=== PATIENT | female | born 1945 | race Caucasian/White ===

== ENCOUNTER 2019-06-07 07:42 | Inpatient (IN) ==
[2019-06-07] MEDS ORDERED: Ipratropium/Albuterol Neb 3 ML IH ONE (07:46)
[2019-06-07] MEDS ORDERED: methylPREDNISolone 125 MG/2 ML VIAL IVP ONE (07:47)
[2019-06-07 08:58] LABS: Basophils # 0.1 K/mcL (0.0-0.2); Basophils % 0.6 %; Eosinophils # 0.3 K/mcL (0.0-0.6); Hematocrit 40.5 % (35.3-44.9); Hemoglobin 13.2 g/dL (11.5-15.4); Immature Granulocytes % 0.6 % (0-4); Lymphocytes # 1.7 K/mcL (0.6-4.6); Lymphocytes % 21.1 %; Mean Corpuscular HGB Conc 32.6 g/dL (31.6-35.5); Mean Corpuscular Hemoglobin 29.9 pg (28.0-33.3); Mean Corpuscular Volume 91.8 fL (83.0-100.0); Mean Platelet Volume 11.9 fL (9.4-12.4); Monocytes # 0.5 K/mcL (0.0-1.3); Monocytes % 6.1 %; Neutrophils # 5.6 K/mcL (1.6-8.9); Platelet Count 247 K/mcL (140-400); Red Blood Count 4.41 M/mcL (3.82-4.97); Red Cell Distribution Width 12.8 % (11.5-14.5); Segmented Neutrophils % 68.6 %; White Blood Count 8.2 K/mcL (4.3-11.1)
[2019-06-07] MEDS ORDERED: 0.9 % Sodium Chloride 1,000 ML IVC ONE ×3 (09:10→17:15)
[2019-06-07 09:20] LABS: Alanine Aminotransferase 30 Units/L (7-52); Albumin 4.5 g/dL (3.5-5.7); Albumin/Globulin Ratio 1.4 (1.1-2.2); Alkaline Phosphatase 104 Units/L (34-104); Aspartate Amino Transferase 38 Units/L (13-39); BUN/Creatinine Ratio 30 (6-26); Bilirubin,Indirect 0.4 mg/dL (0.0-1.0); Bilirubin,Total 0.4 mg/dL (0.3-1.0); Blood Urea Nitrogen 30 mg/dL (8-23); C-Reactive Protein < 5 mg/L (Less than 10); Calcium 9.4 mg/dL (8.6-10.3); Carbon Dioxide 25 mEq/L (23-29); Chloride 97 mEq/L (98-107); Globulin 3.2 g/dL (2.4-3.5); Glucose 388 mg/dL (70-105); Lactate Dehydrogenase 190 Units/L (140-271); Magnesium 2.1 mg/dL (1.6-2.6); Osmolality,Calculated 302 (280-300); Phosphorous 3.7 mg/dL (2.7-4.5); Potassium 4.1 mEq/L (3.5-5.1); Sodium 135 mEq/L (136-145); Total Protein 7.7 g/dL (6.4-8.9); Troponin I < 0.03 ng/mL (< 0.04); eGFR For African Americans > 60 (> 60); eGFR For Non-African Americans 54 (> 60)
[2019-06-07] MEDS ORDERED: cefTRIAXone 2,000 MG in Water for inj. (sterile) 20 ML IVP ONE (09:32)
[2019-06-07] MEDS ORDERED: Azithromycin 500 MG in 0.9 % Sodium Chloride 250 ML IVPB ONE (09:32)
[2019-06-07 09:37] LABS: Ferritin 243 ng/mL (10-120)
[2019-06-07] MEDS ORDERED: Naloxone 0.4 MG/ML INJ IVP PRN (12:52)
[2019-06-07] MEDS ORDERED: D5% in Water 1,000 ML IVC PRN (12:52)
[2019-06-07] MEDS ORDERED: Dextrose Gel 15 GM/37.5 ML TUBE PO PRN ×2 (12:52)
[2019-06-07] MEDS ORDERED: Mag Hydrox/Al Hydrox/Simeth 30 ML UDC PO PRN (12:52)
[2019-06-07] MEDS ORDERED: Acetaminophen 325 MG TABLET PO PRN (12:52)
[2019-06-07] MEDS ORDERED: *HR* Dextrose 50 % in Water (Syg) 50 ML SYRINGE IVP PRN (12:52)
[2019-06-07] MEDS ORDERED: MOM Conc 10 ML UD.LIQ PO PRN (12:52)
[2019-06-07] MEDS ORDERED: Ondansetron ODT 4 MG TAB.RAPDIS SL PRN (12:52)
[2019-06-07] MEDS ORDERED: ALPRAZolam 0.25 MG TABLET PO PRN (12:54)
[2019-06-07] MEDS ORDERED: Insulin LISPRO 300 UNITS/3 ML VIAL SQ SCH ×2 (16:30→21:00)
[2019-06-07] MEDS ORDERED: carvediloL 25 MG TABLET PO SCH (17:00)
[2019-06-07] MEDS ORDERED: Warfarin perPT PO PRN (18:00)
[2019-06-07] MEDS: Furosemide 40 MG TABLET PO SCH (18:06)
[2019-06-07] MEDS: Cholestyramine 4 GM POWD.PACK PO SCH (18:06)
[2019-06-07 19:43] LABS: INR 3.2; Prothrombin Time 36.5 Seconds (9.4-12.1)
[2019-06-07] MEDS: Insulin LISPRO 300 UNITS/3 ML VIAL SQ SCH (20:50)
[2019-06-07] MEDS: carvediloL 25 MG TABLET PO SCH (20:50)
[2019-06-07] MEDS: lisinopriL 20 MG TABLET PO SCH (20:50)
[2019-06-07] MEDS: gemfibroziL 600 MG TABLET PO SCH (20:50)
[2019-06-07] MEDS: 0.9 % Sodium Chloride 1,000 ML IVC SCH (20:53)
[2019-06-07 21:22] LABS: VBG HCO3 25 mEq/L (21-27); VBG PCO2 42 mmHg (41-51); VBG PH 7.38 pH Units (7.32-7.42); VBG PO2 81 mmHg (25-50)
[2019-06-07 21:23] LABS: Estimated Average Glucose 272 mg/dl
[2019-06-07 22:17] LABS: Bilirubin,Urine Negative (Negative); Blood,Urine Negative (Negative); Clarity,Urine Clear (Clear); Color,Urine Yellow (Yellow); Glucose,Urine (UA) >=1000 mg/dL (Normal); Ketones,Urine Negative (Negative); Leukocyte Esterase,Urine Negative (Negative); Nitrite,Urine Negative (Negative); Protein,Urine Negative (Neg-Trace); Specific Gravity,Urine 1.027 (1.010-1.025); Urobilinogen,Urine Normal (Normal)
[2019-06-08] MEDS: Insulin LISPRO 300 UNITS/3 ML VIAL SQ SCH ×6 (00:06→20:08)
[2019-06-08] MEDS: 0.9 % Sodium Chloride 1,000 ML IVC SCH (03:34)
[2019-06-08 04:04] LABS: Hematocrit 37.1 % (35.3-44.9); Hemoglobin 11.8 g/dL (11.5-15.4); Mean Corpuscular HGB Conc 31.8 g/dL (31.6-35.5); Mean Corpuscular Hemoglobin 29.5 pg (28.0-33.3); Mean Corpuscular Volume 92.8 fL (83.0-100.0); Mean Platelet Volume 11.8 fL (9.4-12.4); Platelet Count 246 K/mcL (140-400); Red Cell Distribution Width 12.8 % (11.5-14.5)
[2019-06-08 04:06] LABS: White Blood Count 12.8 K/mcL (4.3-11.1)
[2019-06-08 04:17] LABS: INR 3.8; Prothrombin Time 42.9 Seconds (9.4-12.1)
[2019-06-08 04:22] LABS: Enterococcus by PCR Not Detected (Not Detect); Staphylococcus by PCR DETECTED (Not Detect); mecA Methicillin-Resist Gene DETECTED (Not Detect)
[2019-06-08 04:23] LABS: Acinetobacter baumannii by PCR Not Detected (Not Detect); Candida albicans by PCR Not Detected (Not Detect); Candida glabrata by PCR Not Detected (Not Detect); Candida krusei by PCR Not Detected (Not Detect); Candida parapsilosis by PCR Not Detected (Not Detect); Candida tropicalis by PCR Not Detected (Not Detect); Enterobacter cloacae Cmplx PCR Not Detected (Not Detect); Enterobacteriaceae by PCR Not Detected (Not Detect); Escherichia coli by PCR Not Detected (Not Detect); Klebsiella oxytoca by PCR Not Detected (Not Detect); Klebsiella pneumoniae by PCR Not Detected (Not Detect); Proteus by PCR Not Detected (Not Detect); Pseudomonas aeruginosa by PCR Not Detected (Not Detect); Serratia marcescens by PCR Not Detected (Not Detect); Staphylococcus aureus by PCR Not Detected (Not Detect); Streptococcus agalactiae(B)PCR Not Detected (Not Detect); Streptococcus by PCR Not Detected (Not Detect); Streptococcus pneumoniae PCR Not Detected (Not Detect); Streptococcus pyogenes (A) PCR Not Detected (Not Detect)
[2019-06-08 04:23] LABS: Calcium 8.4 mg/dL (8.6-10.3); Magnesium 2.1 mg/dL (1.6-2.6); Potassium 4.1 mEq/L (3.5-5.1)
[2019-06-08] MEDS: carvediloL 25 MG TABLET PO SCH ×2 (07:53→20:00)
[2019-06-08] MEDS: lisinopriL 20 MG TABLET PO SCH (07:53)
[2019-06-08] MEDS: Cholestyramine 4 GM POWD.PACK PO SCH ×3 (07:53→17:07)
[2019-06-08] MEDS: gemfibroziL 600 MG TABLET PO SCH ×2 (07:53→20:00)
[2019-06-08] MEDS: Furosemide 40 MG TABLET PO SCH ×2 (07:53→16:00)
[2019-06-08] MEDS: Aspirin 81 MG TAB.CHEW PO SCH (07:53)
[2019-06-08] MEDS: cefTRIAXone 1,000 MG in Water for inj. (sterile) 10 ML IVP SCH (07:53)
[2019-06-08] MEDS: Azithromycin 500 MG in 0.9 % Sodium Chloride 250 ML IVPB SCH (07:54)
[2019-06-08] MEDS ORDERED: Vancomycin 1,750 MG in 0.9 % Sodium Chloride 250 ML IVPB SCH (09:00)
[2019-06-08] MEDS ORDERED: Insulin DETEMIR 100 UNIT/ML X5UNITS SQ ONE (16:00)
[2019-06-09] MEDS: Insulin LISPRO 300 UNITS/3 ML VIAL SQ SCH ×4 (00:12→12:17)
[2019-06-09 04:10] LABS: Hematocrit 36.3 % (35.3-44.9); Hemoglobin 11.2 g/dL (11.5-15.4); Mean Corpuscular HGB Conc 30.9 g/dL (31.6-35.5); Mean Corpuscular Hemoglobin 29.8 pg (28.0-33.3); Mean Corpuscular Volume 96.5 fL (83.0-100.0); Mean Platelet Volume 11.6 fL (9.4-12.4); Platelet Count 208 K/mcL (140-400); Red Blood Count 3.76 M/mcL (3.82-4.97); Red Cell Distribution Width 13.2 % (11.5-14.5); White Blood Count 8.2 K/mcL (4.3-11.1)
[2019-06-09 04:22] LABS: BUN/Creatinine Ratio 27 (6-26); Blood Urea Nitrogen 21 mg/dL (8-23); Calcium 8.2 mg/dL (8.6-10.3); Carbon Dioxide 21 mEq/L (23-29); Chloride 113 mEq/L (98-107); Glucose 138 mg/dL (70-105); Osmolality,Calculated 297 (280-300); Potassium 4.2 mEq/L (3.5-5.1); Sodium 141 mEq/L (136-145); eGFR For African Americans > 60 (> 60); eGFR For Non-African Americans > 60 (> 60)
[2019-06-09 04:26] LABS: INR 4.9; Prothrombin Time 56.1 Seconds (9.4-12.1)
[2019-06-09] MEDS: Azithromycin 500 MG in 0.9 % Sodium Chloride 250 ML IVPB SCH (08:20)
[2019-06-09] MEDS: cefTRIAXone 1,000 MG in Water for inj. (sterile) 10 ML IVP SCH (08:20)
[2019-06-09] MEDS: carvediloL 25 MG TABLET PO SCH (08:21)
[2019-06-09] MEDS: gemfibroziL 600 MG TABLET PO SCH (08:21)
[2019-06-09] MEDS: Furosemide 40 MG TABLET PO SCH (08:22)
[2019-06-09] MEDS: Aspirin 81 MG TAB.CHEW PO SCH (08:22)
[2019-06-09] MEDS: Cholestyramine 4 GM POWD.PACK PO SCH ×2 (08:34→12:17)
[2019-06-09] MEDS ORDERED: Insulin DETEMIR 100 UNIT/ML X5UNITS SQ SCH (09:00)
[2019-06-09 11:19] VITALS: BP 121/67
== END 2019-06-09 12:21 | disposition home or self-care (01) | DRG 190 ==
LOC: EMEROOARM 07:42 → 2NENU 07:42 → SUATTDRO 11:12 → 2NENU 12:40 → 2ANU 06-08 21:38
PROVIDERS: ADMIT Internal Medicine; ATTEND Internal Medicine

== ENCOUNTER 2019-10-06 06:58 | Inpatient (IN) ==
[2019-10-06 07:44] LABS: Basophils # 0.1 K/mcL (0.0-0.2); Basophils % 0.9 %; Eosinophils # 0.2 K/mcL (0.0-0.6); Eosinophils % 2.7 %; Hematocrit 41.7 % (35.3-44.9); Hemoglobin 13.1 g/dL (11.5-15.4); Immature Granulocytes % 0.9 % (0-4); Lymphocytes # 2.1 K/mcL (0.6-4.6); Lymphocytes % 29.7 %; Mean Corpuscular HGB Conc 31.4 g/dL (31.6-35.5); Mean Corpuscular Hemoglobin 29.7 pg (28.0-33.3); Mean Corpuscular Volume 94.6 fL (83.0-100.0); Mean Platelet Volume 11.4 fL (9.4-12.4); Monocytes # 0.5 K/mcL (0.0-1.3); Monocytes % 7.5 %; Neutrophils # 4.1 K/mcL (1.6-8.9); Platelet Count 285 K/mcL (140-400); Red Blood Count 4.41 M/mcL (3.82-4.97); Red Cell Distribution Width 13.2 % (11.5-14.5); Segmented Neutrophils % 58.3 %
[2019-10-06 07:50] LABS: INR 3.5; Prothrombin Time 39.8 Seconds (9.4-12.1)
[2019-10-06 08:03] LABS: Alanine Aminotransferase 22 Units/L (7-52); Albumin 4.5 g/dL (3.5-5.7); Albumin/Globulin Ratio 1.5 (1.1-2.2); Alkaline Phosphatase 100 Units/L (34-104); Aspartate Amino Transferase 28 Units/L (13-39); BUN/Creatinine Ratio 29 (6-26); Bilirubin,Total 0.5 mg/dL (0.3-1.0); Blood Urea Nitrogen 27 mg/dL (8-23); Carbon Dioxide 29 mEq/L (23-29); Chloride 100 mEq/L (98-107); Globulin 3.1 g/dL (2.4-3.5); Glucose 300 mg/dL (70-105); Osmolality,Calculated 306 (280-300); Potassium 3.9 mEq/L (3.5-5.1); Sodium 140 mEq/L (136-145); Total Protein 7.6 g/dL (6.4-8.9); Troponin I < 0.03 ng/mL (< 0.04); eGFR For African Americans > 60 (> 60); eGFR For Non-African Americans 58 (> 60)
[2019-10-06 08:07] LABS: Bacteria,Urine Many per hpf (None-Few); Bilirubin,Urine Negative (Negative); Blood,Urine Small (Negative); Clarity,Urine Ex.Turbid (Clear); Color,Urine Yellow (Yellow); Glucose,Urine (UA) >=1000 mg/dL (Normal); Ketones,Urine Negative (Negative); Leukocyte Esterase,Urine Large (Negative); Nitrite,Urine Negative (Negative); Protein,Urine 30 mg/dL (Neg-Trace); Specific Gravity,Urine 1.016 (1.010-1.025); Urobilinogen,Urine Normal (Normal); WBC,Urine TNTC per hpf (0-3)
[2019-10-06] MEDS ORDERED: cefTRIAXone 1,000 MG in Water for inj. (sterile) 10 ML IVP STA (09:17)
[2019-10-06] MEDS ORDERED: Naloxone 0.4 MG/ML INJ IVP PRN (09:38)
[2019-10-06] MEDS ORDERED: Ondansetron 4 MG/2 ML VIAL IVP PRN (09:38)
[2019-10-06] MEDS ORDERED: D5% in Water 1,000 ML IVC PRN (09:38)
[2019-10-06] MEDS ORDERED: *HR* Dextrose 50 % in Water (Vial) 50 ML VIAL IVP PRN (09:38)
[2019-10-06] MEDS ORDERED: Dextrose Gel 15 GM/37.5 ML TUBE PO PRN ×2 (09:38)
[2019-10-06] MEDS ORDERED: Perflutren Lipid Microsphere 1.3 ML in 0.9 % Sodium Chloride 8.7 ML IVP PRN (09:41)
[2019-10-06] MEDS: Aspirin 81 MG TAB.CHEW PO SCH (12:10)
[2019-10-06] MEDS: Insulin LISPRO 300 UNITS/3 ML VIAL SQ SCH ×2 (12:10→17:25)
[2019-10-06] MEDS: lisinopriL 20 MG TABLET PO SCH ×2 (12:10→21:58)
[2019-10-06] MEDS: carvediloL 25 MG TABLET PO SCH ×2 (12:10→17:37)
[2019-10-06] MEDS ORDERED: *HR* LORazepam 2 MG/ML VIAL IVP ONE (16:10)
[2019-10-06] MEDS ORDERED: Warfarin perPT PO PRN (18:00)
[2019-10-06] MEDS: Budesonide/Formoterol 80/4.5 1 PUFF INH IH SCH (20:28)
[2019-10-06] MEDS: gemfibroziL 600 MG TABLET PO SCH (21:58)
[2019-10-07 01:34] LABS: INR 2.7; Prothrombin Time 30.5 Seconds (9.4-12.1)
[2019-10-07 01:51] LABS: BUN/Creatinine Ratio 27 (6-26); Blood Urea Nitrogen 26 mg/dL (8-23); Calcium 9.5 mg/dL (8.6-10.3); Carbon Dioxide 26 mEq/L (23-29); Chloride 103 mEq/L (98-107); Chol/HDL Ratio 4.2 (0-4.9); Cholesterol 191 mg/dL (< 200); Glucose 181 mg/dL (70-105); HDL Cholesterol 45 mg/dL (40-59); LDL Cholesterol,Calculated 118 mg/dL (< 100); Osmolality,Calculated 295 (280-300); Potassium 3.9 mEq/L (3.5-5.1); Sodium 138 mEq/L (136-145); Triglycerides 139 mg/dL (< 150); eGFR For African Americans > 60 (> 60); eGFR For Non-African Americans 57 (> 60)
[2019-10-07] MEDS: Budesonide/Formoterol 80/4.5 1 PUFF INH IH SCH ×2 (07:58→19:53)
[2019-10-07 08:12] LABS: Estimated Average Glucose 203 mg/dl
[2019-10-07] MEDS: lisinopriL 20 MG TABLET PO SCH ×2 (08:20→21:07)
[2019-10-07] MEDS: Cyanocobalamin (B-12) 1,000 MCG TABLET PO SCH (08:20)
[2019-10-07] MEDS: Cholecalciferol (D-3) 1,000 UNIT (25MCG) TABLET PO SCH (08:20)
[2019-10-07] MEDS: gemfibroziL 600 MG TABLET PO SCH ×2 (08:20→21:07)
[2019-10-07] MEDS: ALPRAZolam 0.25 MG TABLET PO SCH (08:20)
[2019-10-07] MEDS: Aspirin 81 MG TAB.CHEW PO SCH (08:21)
[2019-10-07] MEDS: carvediloL 25 MG TABLET PO SCH ×2 (08:21→17:50)
[2019-10-07] MEDS: cefTRIAXone 1,000 MG in Water for inj. (sterile) 10 ML IVP SCH (08:21)
[2019-10-07] MEDS: Insulin LISPRO 300 UNITS/3 ML VIAL SQ SCH ×3 (08:23→17:50)
[2019-10-07] MEDS ORDERED: *HR* Warfarin 5 MG TABLET PO ONE (18:00)
[2019-10-08 06:54] LABS: Hematocrit 38.4 % (35.3-44.9); Hemoglobin 12.1 g/dL (11.5-15.4); Mean Corpuscular HGB Conc 31.5 g/dL (31.6-35.5); Mean Corpuscular Hemoglobin 30.2 pg (28.0-33.3); Mean Corpuscular Volume 95.8 fL (83.0-100.0); Mean Platelet Volume 11.6 fL (9.4-12.4); Platelet Count 254 K/mcL (140-400); Red Blood Count 4.01 M/mcL (3.82-4.97); Red Cell Distribution Width 13.5 % (11.5-14.5)
[2019-10-08 06:58] LABS: INR 2.1; Prothrombin Time 23.9 Seconds (9.4-12.1)
[2019-10-08 07:19] LABS: BUN/Creatinine Ratio 24 (6-26); Blood Urea Nitrogen 21 mg/dL (8-23); Calcium 9.3 mg/dL (8.6-10.3); Carbon Dioxide 27 mEq/L (23-29); Chloride 103 mEq/L (98-107); Glucose 191 mg/dL (70-105); Osmolality,Calculated 294 (280-300); Potassium 4.2 mEq/L (3.5-5.1); Sodium 138 mEq/L (136-145); eGFR For African Americans > 60 (> 60); eGFR For Non-African Americans > 60 (> 60)
[2019-10-08] MEDS: Budesonide/Formoterol 80/4.5 1 PUFF INH IH SCH ×2 (08:17→20:25)
[2019-10-08] MEDS: Cyanocobalamin (B-12) 1,000 MCG TABLET PO SCH (08:36)
[2019-10-08] MEDS: carvediloL 25 MG TABLET PO SCH ×2 (08:36→17:36)
[2019-10-08] MEDS: ALPRAZolam 0.25 MG TABLET PO SCH (08:36)
[2019-10-08] MEDS: Aspirin 81 MG TAB.CHEW PO SCH (08:36)
[2019-10-08] MEDS: lisinopriL 20 MG TABLET PO SCH ×2 (08:36→22:09)
[2019-10-08] MEDS: gemfibroziL 600 MG TABLET PO SCH ×2 (08:36→22:09)
[2019-10-08] MEDS: Cholecalciferol (D-3) 1,000 UNIT (25MCG) TABLET PO SCH (08:36)
[2019-10-08] MEDS: cefTRIAXone 1,000 MG in Water for inj. (sterile) 10 ML IVP SCH (08:37)
[2019-10-08] MEDS: Insulin LISPRO 300 UNITS/3 ML VIAL SQ SCH ×3 (08:38→17:36)
[2019-10-08] MEDS ORDERED: *HR* Heparin 5,000 UNIT/ML VIAL IVP ONE (09:00)
[2019-10-08] MEDS ORDERED: *HR* Heparin 5,000 UNIT/ML VIAL IVP PRN ×2 (09:00)
[2019-10-08] MEDS: Heparin 25,000UNIT/250ML 1/2NS 25,000 UNIT/250 ML IV.SOLN IVC SCH (10:40)
[2019-10-09 01:01] LABS: Hematocrit 37.8 % (35.3-44.9); Hemoglobin 11.7 g/dL (11.5-15.4); Mean Corpuscular Hemoglobin 29.8 pg (28.0-33.3); Mean Corpuscular Volume 96.2 fL (83.0-100.0); Mean Platelet Volume 11.3 fL (9.4-12.4); Platelet Count 258 K/mcL (140-400); Red Blood Count 3.93 M/mcL (3.82-4.97); Red Cell Distribution Width 13.4 % (11.5-14.5); White Blood Count 8.2 K/mcL (4.3-11.1)
[2019-10-09 01:05] LABS: INR 1.6; Prothrombin Time 18.3 Seconds (9.4-12.1)
[2019-10-09 01:19] LABS: BUN/Creatinine Ratio 27 (6-26); Blood Urea Nitrogen 25 mg/dL (8-23); Calcium 8.8 mg/dL (8.6-10.3); Carbon Dioxide 26 mEq/L (23-29); Chloride 103 mEq/L (98-107); Glucose 217 mg/dL (70-105); Osmolality,Calculated 295 (280-300); Potassium 4.1 mEq/L (3.5-5.1); Sodium 137 mEq/L (136-145); eGFR For African Americans > 60 (> 60); eGFR For Non-African Americans 59 (> 60)
[2019-10-09] MEDS: Heparin 25,000UNIT/250ML 1/2NS 25,000 UNIT/250 ML IV.SOLN IVC SCH ×3 (07:20→15:29)
[2019-10-09] MEDS: Budesonide/Formoterol 80/4.5 1 PUFF INH IH SCH ×2 (07:51→19:42)
[2019-10-09] MEDS: Aspirin 81 MG TAB.CHEW PO SCH (08:37)
[2019-10-09] MEDS: Cholecalciferol (D-3) 1,000 UNIT (25MCG) TABLET PO SCH (08:37)
[2019-10-09] MEDS: ALPRAZolam 0.25 MG TABLET PO SCH (08:37)
[2019-10-09] MEDS: gemfibroziL 600 MG TABLET PO SCH ×2 (08:37→20:53)
[2019-10-09] MEDS: lisinopriL 20 MG TABLET PO SCH ×2 (08:37→20:53)
[2019-10-09] MEDS: carvediloL 25 MG TABLET PO SCH ×2 (08:37→15:53)
[2019-10-09] MEDS: Insulin LISPRO 300 UNITS/3 ML VIAL SQ SCH ×3 (08:37→15:53)
[2019-10-09] MEDS: cefTRIAXone 1,000 MG in Water for inj. (sterile) 10 ML IVP SCH (08:38)
[2019-10-09] MEDS: Cyanocobalamin (B-12) 1,000 MCG TABLET PO SCH (08:38)
[2019-10-09] MEDS: Ipratropium/Albuterol Neb 3 ML IH SCH (14:00)
[2019-10-09] MEDS: Insulin DETEMIR 100 UNIT/ML X5UNITS SQ SCH (18:16)
[2019-10-10 06:19] LABS: Hemoglobin 11.9 g/dL (11.5-15.4); Mean Corpuscular HGB Conc 31.3 g/dL (31.6-35.5); Mean Corpuscular Hemoglobin 30.2 pg (28.0-33.3); Mean Corpuscular Volume 96.4 fL (83.0-100.0); Mean Platelet Volume 11.1 fL (9.4-12.4); Platelet Count 250 K/mcL (140-400); Red Blood Count 3.94 M/mcL (3.82-4.97); Red Cell Distribution Width 13.4 % (11.5-14.5); White Blood Count 7.4 K/mcL (4.3-11.1)
[2019-10-10 06:23] LABS: INR 1.3; Prothrombin Time 14.3 Seconds (9.4-12.1)
[2019-10-10 06:42] LABS: BUN/Creatinine Ratio 27 (6-26); Blood Urea Nitrogen 23 mg/dL (8-23); Carbon Dioxide 25 mEq/L (23-29); Chloride 105 mEq/L (98-107); Glucose 184 mg/dL (70-105); Osmolality,Calculated 294 (280-300); Potassium 4.2 mEq/L (3.5-5.1); Sodium 138 mEq/L (136-145); eGFR For African Americans > 60 (> 60); eGFR For Non-African Americans > 60 (> 60)
[2019-10-10] MEDS: Budesonide/Formoterol 80/4.5 1 PUFF INH IH SCH ×2 (07:41→20:36)
[2019-10-10] MEDS: Ipratropium/Albuterol Neb 3 ML IH SCH (07:41)
[2019-10-10] MEDS: Insulin LISPRO 300 UNITS/3 ML VIAL SQ SCH ×3 (07:43→16:01)
[2019-10-10] MEDS: ALPRAZolam 0.25 MG TABLET PO SCH (07:45)
[2019-10-10] MEDS: carvediloL 25 MG TABLET PO SCH ×2 (07:45→16:02)
[2019-10-10] MEDS: lisinopriL 20 MG TABLET PO SCH ×2 (07:45→20:43)
[2019-10-10] MEDS: Cyanocobalamin (B-12) 1,000 MCG TABLET PO SCH (07:45)
[2019-10-10] MEDS: gemfibroziL 600 MG TABLET PO SCH ×2 (07:45→20:43)
[2019-10-10] MEDS: cefTRIAXone 1,000 MG in Water for inj. (sterile) 10 ML IVP SCH (07:45)
[2019-10-10] MEDS: Aspirin 81 MG TAB.CHEW PO SCH (07:45)
[2019-10-10] MEDS: Cholecalciferol (D-3) 1,000 UNIT (25MCG) TABLET PO SCH (07:45)
[2019-10-10] MEDS: Insulin DETEMIR 100 UNIT/ML X5UNITS SQ SCH (07:46)
[2019-10-10] MEDS: Heparin 25,000UNIT/250ML 1/2NS 25,000 UNIT/250 ML IV.SOLN IVC SCH (08:57)
[2019-10-10] MEDS ORDERED: ISOVUE-370 200 ML INFUS..BTL ONE (11:23)
[2019-10-10] MEDS ORDERED: 0.9 % Sodium Chloride 2,000 ML ONE (11:23)
[2019-10-10] MEDS ORDERED: *HR* Heparin 10,000 UNIT/10 ML VIAL ONE (11:23)
[2019-10-10] MEDS ORDERED: Heparin 1,000 UNITS/500 mL 500 ML ONE (11:23)
[2019-10-10] MEDS ORDERED: Nitroglycerin 1,000 MCG/10 ML VIAL IV ONE (11:23)
[2019-10-10] MEDS ORDERED: *HR* Midazolam HCl 2 MG/2 ML VIAL ONE (12:14)
[2019-10-10] MEDS ORDERED: *HR* FentaNYL (PF) 100 MCG/2 ML VIAL ONE (12:14)
[2019-10-10] MEDS ORDERED: Warfarin perPT PO PRN (18:00)
[2019-10-10] MEDS ORDERED: *HR* Warfarin 5 MG TABLET PO ONE (18:00)
[2019-10-11 03:24] LABS: INR 1.3; Prothrombin Time 14.2 Seconds (9.4-12.1)
[2019-10-11] MEDS: Heparin 25,000UNIT/250ML 1/2NS 25,000 UNIT/250 ML IV.SOLN IVC SCH (07:22)
[2019-10-11 07:27] VITALS: BP 128/69
[2019-10-11] MEDS: Insulin LISPRO 300 UNITS/3 ML VIAL SQ SCH (07:32)
[2019-10-11] MEDS: carvediloL 25 MG TABLET PO SCH (07:32)
[2019-10-11] MEDS: Cyanocobalamin (B-12) 1,000 MCG TABLET PO SCH (07:32)
[2019-10-11] MEDS: lisinopriL 20 MG TABLET PO SCH (07:32)
[2019-10-11] MEDS: Cholecalciferol (D-3) 1,000 UNIT (25MCG) TABLET PO SCH (07:32)
[2019-10-11] MEDS: Aspirin 81 MG TAB.CHEW PO SCH (07:32)
[2019-10-11] MEDS: gemfibroziL 600 MG TABLET PO SCH (07:32)
[2019-10-11] MEDS: ALPRAZolam 0.25 MG TABLET PO SCH (07:32)
[2019-10-11] MEDS: cefTRIAXone 1,000 MG in Water for inj. (sterile) 10 ML IVP SCH (07:33)
[2019-10-11] MEDS: Insulin DETEMIR 100 UNIT/ML X5UNITS SQ SCH (07:54)
[2019-10-11] MEDS: Budesonide/Formoterol 80/4.5 1 PUFF INH IH SCH (08:37)
[2019-10-11] MEDS: Ipratropium/Albuterol Neb 3 ML IH SCH (08:37)
[2019-10-11] MEDS ORDERED: *HR* Warfarin 5 MG TABLET PO ONE (18:00)
== END 2019-10-11 11:47 | disposition home health service (06) | DRG 281 ==
LOC: 3BNU 06:58 → EMEROOARM 06:58 → SUATTDRO 09:42 → 3BNU 09:43 → 2ANU 10-08 18:22
PROVIDERS: ADMIT Internal Medicine; ATTEND Nurse Practitioner Adult Health